=== PATIENT | female | born 1960 | race American Indian/Alaskan Native ===

== ENCOUNTER 2024-07-25 10:15 | Inpatient (IN) | payer BC, OTHER ==
[2024-07-25] MEDS ORDERED: Ondansetron 4 MG/2 ML SDV IV PRN (10:47)
[2024-07-25] MEDS ORDERED: Sodium Chloride 0.9% 10 ML Syringe FLUSH PRN (10:47)
[2024-07-25] MEDS ORDERED: Polyethylene Glycol 3350 Powder 17 GM Packet PO PRN (10:47)
[2024-07-25] MEDS ORDERED: Albuterol/Ipratropium 3.0-0.5 MG/3 ML Neb Soln NEB PRN (10:47)
[2024-07-25] MEDS ORDERED: Albuterol 0.083% 2.5 MG/3 ML Neb Soln NEB PRN (10:47)
[2024-07-25] MEDS: Acetaminophen 325 MG Tab PO PRN (11:12)
[2024-07-25 11:21] LABS: BASOPHILS ABSOLUTE AUTO 0.03 K/uL (0.00-0.10); BASOPHILS PERCENT AUTO 0.2 % (0.1-1.3); EOSINOPHILS ABSOLUTE AUTO 0.17 K/uL (0.00-0.40); EOSINOPHILS PERCENT AUTO 1.2 % (0.0-5.4); HEMATOCRIT 38.4 % (34.3-46.0); HEMOGLOBIN 13.5 g/dL (11.2-15.5); IMMATURE GRAN ABSOLUTE AUTO 0.08 K/uL (0.00-0.23); IMMATURE GRAN PERCENT AUTO 0.6 % (0.0-0.7); LYMPHOCYTES ABSOLUTE AUTO 2.13 K/uL (0.8-3.3); LYMPHOCYTES PERCENT AUTO 15.2 % (11.4-47.7); MEAN CORPUSCULAR HGB CONC 35.2 g/dL (31.6-35.5); MEAN CORPUSCULAR VOLUME 82.4 fL (81.4-99.0); MONOCYTES ABSOLUTE AUTO 1.14 K/uL (0.20-0.90); MONOCYTES PERCENT AUTO 8.2 % (3.3-12.6); NEUTROPHILS ABSOLUTE AUTO 10.43 K/uL (1.0-7.6); NEUTROPHILS PERCENT AUTO 74.6 % (40.0-78.1); PLATELET COUNT,PLT 234 K/uL (130-375); RED BLOOD CELL COUNT 4.66 M/uL (3.77-5.24)
[2024-07-25 11:35] LABS: A/G RATIO 0.5 (1.2-2.2); ALANINE AMINOTRANSFERASE,ALT 28 U/L (12-78); ALBUMIN 2.7 g/dL (3.4-5.0); ALKALINE PHOSPHATASE 147 U/L (46-116); ASPARTATE AMNIOTRANSFERASE,AST 22 U/L (15-37); BILIRUBIN TOTAL 0.6 mg/dL (0.2-1.0); BLOOD UREA NITROGEN,BUN 8 mg/dL (7-18); CALCIUM 8.5 mg/dL (8.5-10.1); CARBON DIOXIDE,CO2 30 mmol/L (21-32); CHLORIDE,CL 96 mmol/L (100-108); CREATININE 0.8 mg/dL (0.6-1.0); ESTIMATED GFR 83 mL/min (>60); GLUCOSE RANDOM 197 mg/dL (74-106); MAGNESIUM 1.7 mg/dL (1.8-2.4); PROTEIN TOTAL,TP 8.1 g/dL (6.4-8.2); SODIUM,NA 135 mmol/L (140-148)
[2024-07-25] MEDS: Sodium Chloride 0.9% 1,000 ML IV SCH (12:05)
[2024-07-25] MEDS: Enoxaparin 40 MG/0.4 ML Syringe SUBCUT SCH (12:05)
[2024-07-25] MEDS: cefTRIAXone 1 GM in Sodium Chloride 0.9% 50 ML IV SCH ×2 (12:50→21:19)
[2024-07-25] MEDS: Azithromycin 500 MG in Sodium Chloride 0.9% 250 ML IV SCH ×2 (12:51→22:03)
[2024-07-25] MEDS: Potassium Chloride 20 MEQ Tab.ER PO ONE ×2 (12:55→17:00)
[2024-07-25] MEDS: Magnesium Sulfate/Water Premix 2 GM in Premix Bag 1 BAG IV SCH (12:55)
[2024-07-25] MEDS: Magnesium Oxide 400 MG Tab PO SCH (12:57)
[2024-07-25] MEDS ORDERED: Glucose Gel 15 GM in 37.5 GM Tube PO PRN (14:42)
[2024-07-25] MEDS ORDERED: 50% Dextrose in Water 50 ML Syringe IV PRN (14:42)
[2024-07-25] MEDS: Insulin Lispro 100 Unit/ML 3 ML KwikPen SUBCUT SCH (17:00)
[2024-07-25] MEDS: guaiFENesin/Dextromethorphan 100-10 MG/5 ML Soln 10 ML Cup PO PRN (17:01)
[2024-07-25] MEDS: Budesonide 0.5 MG/2 ML Neb Susp NEB SCH (21:23)
[2024-07-26 05:12] LABS: HEMOGLOBIN 13.3 g/dL (11.2-15.5); RED BLOOD CELL COUNT 4.58 M/uL (3.77-5.24); WHITE BLOOD CELL COUNT,WBC 12.2 K/uL (3.2-11.0)
[2024-07-26 05:25] LABS: CALCIUM 7.9 mg/dL (8.5-10.1); CREATININE 0.7 mg/dL (0.6-1.0); EST CRCL DRUG DOSING (CG) 81.03 mL/min; MAGNESIUM 1.9 mg/dL (1.8-2.4); POTASSIUM,K 3.5 mmol/L (3.6-5.2)
[2024-07-26 05:31] LABS: ANION GAP 12.5 mmol/L (5.0-14.0)
[2024-07-26] MEDS: Codeine/guaiFENesin 10-100 MG/5 ML Syrup 5 ML Cup PO PRN (06:12)
[2024-07-26] MEDS: Potassium Chloride 20 MEQ Tab.ER PO ONE ×2 (08:41→16:30)
[2024-07-26] MEDS: Benzonatate 100 MG Cap PO PRN (08:45)
[2024-07-27 05:04] LABS: HEMATOCRIT 35.4 % (34.3-46.0); HEMOGLOBIN 12.4 g/dL (11.2-15.5); MEAN CORPUSCULAR HEMOGLOBIN 28.8 pg (31.6-35.5); MEAN CORPUSCULAR VOLUME 82.3 fL (81.4-99.0); RED BLOOD CELL COUNT 4.3 M/uL (3.77-5.24); WHITE BLOOD CELL COUNT,WBC 10.1 K/uL (3.2-11.0)
[2024-07-27 05:16] LABS: CALCIUM 8.2 mg/dL (8.5-10.1); CREATININE 0.7 mg/dL (0.6-1.0); EST CRCL DRUG DOSING (CG) 81.03 mL/min
[2024-07-27] MEDS: Codeine/guaiFENesin 10-100 MG/5 ML Syrup 5 ML Cup PO PRN (16:08)
[2024-07-27] MEDS: Benzonatate 100 MG Cap PO PRN (16:08)
[2024-07-28] MEDS: Levofloxacin/Dextrose 5%-Water 750 MG in Premix Bag 1 BAG IV SCH (14:36)
[2024-07-29 05:05] LABS: HEMATOCRIT 35.6 % (34.3-46.0); HEMOGLOBIN 12.3 g/dL (11.2-15.5); MEAN CORPUSCULAR HEMOGLOBIN 28.5 pg (31.6-35.5); MEAN CORPUSCULAR HGB CONC 34.6 g/dL (31.6-35.5); MEAN CORPUSCULAR VOLUME 82.6 fL (81.4-99.0); RED BLOOD CELL COUNT 4.31 M/uL (3.77-5.24); WHITE BLOOD CELL COUNT,WBC 10.5 K/uL (3.2-11.0)
[2024-07-29 05:23] LABS: CALCIUM 8.4 mg/dL (8.5-10.1); CREATININE 0.7 mg/dL (0.6-1.0); EST CRCL DRUG DOSING (CG) 81.03 mL/min; POTASSIUM,K 3.9 mmol/L (3.6-5.2)
[2024-07-29 05:51] LABS: ANION GAP 9.9 mmol/L (5.0-14.0)
[2024-07-30] MEDS ORDERED: Sodium Chloride 0.9% 10 ML Syringe FLUSH PRN (11:03)
[2024-07-30] MEDS ORDERED: Iopamidol 612 MG/ML 100 ML Bottle IV PRN (11:03)
[2024-07-30] MEDS ORDERED: Sodium Chloride 0.9% 80 ML IV SCH (11:15)
[2024-07-30] MEDS: Levofloxacin 250 MG Tab PO SCH (11:48)
== END 2024-07-30 13:14 | disposition home or self-care (01) | DRG 139 ==
LOC: JP.MS 10:15
PROVIDERS: ADMIT Hospitalist; ATTEND Hospitalist
DX: J10.00 Influenza due to other identified influenza virus with unspecified type of pneumonia (principal); J96.01 Acute respiratory failure with hypoxia; E11.65 Type 2 diabetes mellitus with hyperglycemia; E66.9 Obesity, unspecified; E87.6 Hypokalemia; I10 Essential (primary) hypertension; Z88.1 Allergy status to other antibiotic agents; Z88.0 Allergy status to penicillin; Z87.891 Personal history of nicotine dependence; Z79.899 Other long term (current) drug therapy; Z68.29 Body mass index [BMI] 29.0-29.9, adult
CPT/HCPCS: 36415; 71260; 71260-26; 80048; 80053; 82947; 83735; 84145; 85025; 85027; 87040; 87070; 87205; 94640; 99222; 99232; 99238; A9270-GY; J0456; J0696; J1650; J1815; J1956; J3475; J3490; J7030; J7050